=== PATIENT | female | born 1995 | race Hispanic/Latino ===

== ENCOUNTER 2018-09-16 08:31 | Emergency (ER) | payer BC ==
--- OUTSIDE RECORDS SUMMARY | 2018-09-16 08:33 | XMS REPORT ---
:1995 [facility] Address [address] [place] [address] [address]. [address] [place] [address] Care Team Providers Name Role Phone Unavailable Unavailable Unavailable Problems This patient has no known problems. Allergies, Adverse Reactions, Alerts This patient has no known allergies or adverse reactions. Medications This patient has no known medications.
[2018-09-16 09:16] LABS: Urine Blood 2+ (NEG); Urine Glucose NEGATIVE (NEG); Urine Protein NEGATIVE (NEG); Urine Specific Gravity 1.015 (1.005-1.030)
[2018-09-16 09:39] LABS: Absolute Lymphocytes (CBC) 1.8 K/uL (0.7-4.9); Absolute Monocytes 0.3 K/uL (0.1-1.3); Absolute Neutrophil 2.3 K/uL (1.8-8.0); Basophils % 0.4 % (0-1.3); Eosinophils % 2.4 % (0-4.4); Hematocrit 41.4 % (36.0-45.0); Lymphocytes % 38.8 % (15.3-44.8); MCH 32.9 pg (27.0-35.0); MCV 95.6 fL (80-100); MPV 8.3 fL (7.6-11.3); Monocytes % 7.5 % (3.3-12.3); RBC Red Blood Cell Count 4.33 M/uL (3.86-4.86)
[2018-09-16 10:13] LABS: BUN Blood Urea Nitrogen 8 mg/dL (7-18); Bicarbonate 26 mmol/L (21-32); Glucose Level 88 mg/dL (74-106); HCG, Quantitative 6617 mIU/mL (1-3); Potassium 3.6 mmol/L (3.5-5.1); Sodium Level 137 mmol/L (136-145)
--- NOTE | 2018-09-16 11:15 | RAD REPORT ---
EXAM DESCRIPTION: US - Transvaginal OB - 09/16/2018 10:55 am CLINICAL HISTORY: Abd cramping, ;Vaginal bleeding COMPARISON: No comparisons FINDINGS: A single gestational sac is seen within the uterus. The shape of the sac is within normal limits for gestational age. Within the sac is a single pole with crown-rump length of 6 mm, cor relating to estimated gestational age of 6 weeks 3 days. Estimated date of delivery is 05/09/2019. Heart rate is 115 BPM. The placenta is not yet developed due to early gestational age. The maternal adnexa and ovaries are within normal limits. Normal Doppler blood flow was demonstrated to both ovaries. IMPRESSION: Single live early intrauterine gestation with estimated gestational age of 6 weeks 3 day s, SHAILESH 05/09/2019. No unusual or unexpected finding.
--- NOTE | 2018-09-16 11:16 | EDPHYS ---
Physician Documentation [facility] Name: Lorraine Boyce Age: 22 yrs Sex: Female : 1995 Arrival Date: 09/16/2018 Time: 08:35 Bed 18 Private MD: None, None ED Physician Manuel Cabrera HPI: 09/16 08:57 This 22 yrs old Female presents to ER via Ambulatory with complaints of jr8 Vaginal Bleeding, + Preg <12wks. 08:57 The patient presents to the emergency department with vaginal bleeding, that is jr8 moderate, with clots. course: care: none, Leakage of Fluid: none appreciated, Ultrasound: the patient has not had an ultrasound. Previous pregnancies: in previous pregnancies patient has had vaginal delivery, no complications. Associated signs and symptoms: Pertinent positives: abdominal cramping. The patient has not experienced similar symptoms in the past. The patient has not recently seen a physician. 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 - Social history:: Smoking status: Patient/guardian denies using tobacco. - Ebola Screening: : Patient negative for fever greater than or equal to 101.5 degrees Fahrenheit, and additional compatible Ebola Virus Disease symptoms Patient denies exposure to infectious person Patient denies travel to an Ebola-affected area in the 21 days before illness onset No symptoms or risks identified at this time. ROS: 08:57 Eyes: Negative for injury, pain, redness, and discharge, ENT: Negative for injury, jr8 pain, and discharge, Neck: Negative for injury, pain, and swelling, Cardiovascular: Negative for chest pain, palpitations, and edema, Respiratory: Negative for shortness of breath, cough, wheezing, and pleuritic chest pain, Abdomen/GI: Negative for abdominal pain, nausea, vomiting, diarrhea, and constipation, Back: Negative for injury and pain, MS/Extremity: Negative for injury and deformity, Skin: Negative for injury, rash, and discoloration, Neuro: Negative for headache, weakness, numbness, tingling, and seizure. 08:57 : Positive for pelvic pain, vaginal bleeding. Exam: 08:57 Eyes: Pupils equal round and reactive to light, extra-ocular motions intact. Lids and jr8 lashes normal. Conjunctiva and sclera are non-icteric and not injected. Cornea within normal limits. Periorbital areas with no swelling, redness, or edema. ENT: Nares patent. No nasal discharge, no septal abnormalities noted. Tympanic membranes are normal and external auditory canals are clear. Oropharynx with no redness, swelling, or masses, exudates, or evidence of obstruction, uvula midline. Mucous membranes moist. Neck: Trachea midline, no thyromegaly or masses palpated, and no cervical lymphadenopathy. Supple, full range of motion without nuchal rigidity, or vertebral point tenderness. No Meningismus. Cardiovascular: Regular rate and rhythm with a normal S1 and S2. No gallops, murmurs, or rubs. Normal PMI, no JVD. No pulse deficits. Respiratory: Lungs have equal breath sounds bilaterally, clear to auscultation and percussion. No rales, rhonchi or wheezes noted. No increased work of breathing, no retractions or nasal flaring. Abdomen/GI: Soft, non-tender, with normal bowel sounds. No distension or tympany. No guarding or rebound. No evidence of tenderness throughout. Back: No spinal tenderness. No costovertebral tenderness. Full range of motion. Skin: Warm, dry with normal turgor. Normal color with no rashes, no lesions, and no evidence of cellulitis. MS/ Extremity: Pulses equal, no cyanosis. Neurovascular intact. Full, normal range of motion. Neuro: Awake and alert, GCS 15, oriented to person, place, time, and situation. Cranial nerves II-XII grossly intact. Motor strength 5/5 in all extremities. Sensory grossly intact. Cerebellar exam normal. Normal gait. Vital Signs: 08:52 BP 126 / 78; Pulse 65; Resp 16 S; Temp 98.2; Pulse Ox 98% on R/A; Weight 57.15 kg; iw Height 5 ft. 1 in. (154.94 cm); 11:26 BP 124 / 76; Pulse 79; Resp 16; Pulse Ox 100% on R/A; Pain 0/10; iw 08:52 Body Mass Index 23.81 (57.15 kg, 154.94 cm) iw MDM: 08:47 Patient medically screened. [facility] 11:15 Data reviewed: vital signs, nurses notes, lab test result(s), radiologic studies, 8 ultrasound, and as a result, I will discharge patient. Data interpreted: Pulse oximetry: on room air is 98 %. Interpretation: normal. Counseling: I had a detailed discussion with the patient and/or guardian regarding: the historical points, exam findings, and any diagnostic results supporting the discharge/admit diagnosis, lab results, radiology results, the need for outpatient follow up, an OB/Gyne specialist, to return to the emergency department if symptoms worsen or persist or if there are any questions or concerns that arise at home. 09/16 08:57 Order name: Quantitative Hcg; Complete Time: 10:37 [facility] 09/16 08:57 Order name: Abo/rh Typing; Complete Time: 10:37 [facility] 09/16 08:57 Order name: Basic Metabolic Panel; Complete Time: 10:37 [facility] 09/16 08:57 Order name: CBC with Diff; Complete Time: 10:37 [facility] 09/16 09:13 Order name: Urine Dipstick--Ancillary (enter results); Complete Time: 10:37 09/16 09:13 Order name: Urine --Ancillary (enter results); Complete Time: 10:37 09/16 08:57 Order name: Urine Test (obtain specimen); Complete Time: 09:16 [facility] 09/16 08:57 Order name: IV Saline Lock; Complete Time: 09:25 [facility] 09/16 08:57 Order name: Labs collected and sent; Complete Time: 09:25 [facility] 09/16 08:57 Order name: NPO; Complete Time: 09:03 [facility] 09/16 08:57 Order name: Urine Dipstick-Ancillary (obtain specimen); Complete Time: 09:16 [facility] 09/16 10:37 Order name: US Transvaginal Ob; Complete Time: 11:20 09/16 10:41 Order name: ABO/RH no charge; Complete Time: 10:41 EDMS Administered Medications: No medications were administered Disposition: 12:59 Co-signature as Attending Physician, Manuel Cabrera MD I agree with the assessment and kdr plan of care. Disposition: 09/16/18 11:15 Discharged to Home. Impression: Threatened . - Condition is Stable. - Discharge Instructions: Threatened Miscarriage, Vaginal Bleeding During , First Trimester, Pelvic Rest. - Medication Reconciliation Form, Thank You Letter, Antibiotic Education, Prescription Opioid Use form. - Follow up: Private Physician; When: 5 - 6 days; Reason: Recheck today's complaints, Continuance of care, Re-evaluation by your physician. - Problem is new. - Symptoms have improved. Signatures: Dispatcher [employer] EDKS Manuel Cabrera MD MD kdr Laurie Barcenas RN RN iw Stone Carlson PA PA jr8 Corrections: (The following items were deleted from the chart) 11:27 11:15 09/16/2018 11:15 Discharged to Home. Impression: Threatened . Condition iw is Stable. Forms are Medication Reconciliation Form, Thank You Letter, Antibiotic Education, Prescription Opioid Use. Follow up: Private Physician; When: 5 - 6 days; Reason: Recheck today's complaints, Continuance of care, Re-evaluation by your physician. Problem is new. Symptoms have improved. jr8
--- NOTE | 2018-09-16 11:16 | ER ---
Nurse's Notes [facility] Name: Lorraine Boyce Age: 22 yrs Sex: Female : 1995 Arrival Date: 09/16/2018 Time: 08:35 Bed 18 Private MD: None, None Diagnosis: Threatened Presentation: 09/16 08:50 Presenting complaint: Patient states: positive home UPT 2 weeks ago, vaginal bleeding iw started Thursday, cramping started yesterday, bleeding has gotten vb developer. Transition of care: patient was not received from another setting of care. Onset of symptoms was September 13, 2018. Risk Assessment: Do you want to hurt yourself or someone else? Patient reports no desire to harm self or others. Initial Sepsis Screen: Does the patient meet any 2 criteria? No. Patient's initial sepsis screen is negative. Does the patient have a suspected source of infection? No. Patient's initial sepsis screen is negative. Care prior to arrival: None. 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 - Social history:: Smoking status: Patient/guardian denies using tobacco. - Ebola Screening: : Patient negative for fever greater than or equal to 101.5 degrees Fahrenheit, and additional compatible Ebola Virus Disease symptoms Patient denies exposure to infectious person Patient denies travel to an Ebola-affected area in the 21 days before illness onset No symptoms or risks identified at this time. Screenin:00 Abuse screen: Denies threats or abuse. Nutritional screening: No deficits noted. aa5 Tuberculosis screening: No symptoms or risk factors identified. Fall Risk None identified. Assessment: 09:00 Obstetrical Assessment: General assessment: awake and alert, respirations even and aa5 unlabored, Patient reports Positive test . General: Appears comfortable, Behavior is calm, cooperative. Pain: Denies pain. Neuro: Level of Consciousness is awake, alert, obeys commands, Oriented to person, place, time, situation. Cardiovascular: Heart tones S1 S2 present Rhythm is regular. Respiratory: Airway is patent Respiratory effort is even, unlabored, Respiratory pattern is regular, symmetrical, Breath sounds are clear bilaterally. GI: Abdomen is flat, non-distended, Bowel sounds present X 4 quads. Abd is soft and non tender X 4 quads. : Reports vaginal bleeding that is moderate flow, dark red with very small clots that began Thursday. EENT: No signs and/or symptoms were reported regarding the EENT system. Derm: Skin is pink, warm \T\ dry. Musculoskeletal: Range of motion: intact in all extremities. 09:30 Reassessment: Patient is alert, oriented x 3, equal unlabored respirations, skin aa5 warm/dry/pink. Patient denies pain at this time. 11:26 Reassessment: Patient appears in no apparent distress at this time. Patient and/or iw family updated on plan of care and expected duration. Pain level reassessed. Patient is alert, oriented x 3, equal unlabored respirations, skin warm/dry/pink. Vital Signs: 08:52 BP 126 / 78; Pulse 65; Resp 16 S; Temp 98.2; Pulse Ox 98% on R/A; Weight 57.15 kg; iw Height 5 ft. 1 in. (154.94 cm); 11:26 BP 124 / 76; Pulse 79; Resp 16; Pulse Ox 100% on R/A; Pain 0/10; iw 08:52 Body Mass Index 23.81 (57.15 kg, 154.94 cm) iw ED Course: 08:35 Patient arrived in ED. mr 08:35 None, None is Private Physician. mr 08:47 Stone Carlson PA is PHCP. jr8 08:47 Manuel Cabrera MD is Attending Physician. jr8 08:50 Elizabeth Santana, RN is Primary Nurse. aa5 08:51 Triage completed. iw 08:56 Arm band placed on. iw 09:10 Initial lab(s) drawn, by me, sent to lab. Inserted saline lock: 20 gauge in right aa5 antecubital area, using aseptic technique. Blood collected. 09:15 Patient has correct armband on for positive identification. Placed in gown. Bed in low mh5 position. Call light in reach. Side rails up X 1. Adult w/ patient. Warm blanket given. Pulse ox on. NIBP on. 09:15 Urine collected: clean catch specimen, clear. [facility] 09:16 Urine --Ancillary (enter results) Sent. [facility] 09:16 Urine Dipstick--Ancillary (enter results) Sent. [facility] 10:56 Transvaginal Ob In Process Unspecified. EDMS 11:26 No provider procedures requiring assistance completed. IV discontinued, intact, iw bleeding controlled, No redness/swelling at site. Pressure dressing applied. Administered Medications: No medications were administered Outcome: 11:15 Discharge ordered by . gisela 11:27 Discharged to home ambulatory. iw 11:27 Condition: good 11:27 Discharge instructions given to patient, family, Instructed on discharge instructions, follow up and referral plans. Demonstrated understanding of instructions, follow-up care. 11:27 Patient left the ED. iw Signatures: Dispatcher [employer] EDWA PapaLeslee Irene, RN RN Elizabeth Santana RN RN aa5 Stone Carlson PA PA 8 Adrianna Collado [facility] Corrections: (The following items were deleted from the chart) 08:56 08:52 2, 0, Living 1, LMP 07/19/2018 iw iw
== END 2018-09-16 11:27 | disposition home or self-care (01) ==
LOC: ER 08:31
DX: O20.0 Threatened abortion (principal); Z3A.08 8 weeks gestation of pregnancy
CPT/HCPCS: 36415; 76817; 80048; 81003; 81025; 84702; 85025; 86900; 86901; 99284

== ENCOUNTER 2018-09-17 12:35 | Emergency (ER) | payer BC ==
--- OUTSIDE RECORDS SUMMARY | 2018-09-17 12:37 | XMS REPORT ---
:1995 [facility] Address [address] [place] [address] Dr. [address] [place] [address] Care Team Providers Name Role Phone Unavailable Unavailable Unavailable Problems This patient has no known problems. Allergies, Adverse Reactions, Alerts This patient has no known allergies or adverse reactions. Medications This patient has no known medications.
--- NOTE | 2018-09-17 15:12 | ER ---
Nurse's Notes [facility] Name: Lorraine Boyce Age: 22 yrs Sex: Female : 1995 Arrival Date: 09/17/2018 Time: 12:39 Bed 19 Private MD: None, None Diagnosis: Spontaneous Presentation: 09/17 12:47 Presenting complaint: Patient states: was seen here yesterday for vaginal bleeding and sv today started having increased bleeding and "something came out of me last night" (pt has it in a ziplock bag). c/o abd cramping. reports using 1 pad an hour. Transition of care: patient was not received from another setting of care. Onset of symptoms was September 17, 2018. Care prior to arrival: None. 12:47 Method Of Arrival: Ambulatory sv 12:47 Acuity: MARVIN 3 sv 14:45 Risk Assessment: Do you want to hurt yourself or someone else?. Initial Sepsis Screen: hb Does the patient meet any 2 criteria? No. Patient's initial sepsis screen is negative. Does the patient have a suspected source of infection? No. Patient's initial sepsis screen is negative. Triage Assessment: 12:47 General: Appears in no apparent distress. comfortable, Behavior is calm, cooperative, sv appropriate for age. Pain: Complains of pain in abdomen Pain currently is 6 out of 10 on a pain scale. Quality of pain is described as crampy. Neuro: Level of Consciousness is awake, alert, obeys commands, Oriented to person, place, time, situation, Moves all extremities. Full function Gait is steady. Respiratory: Respiratory effort is even, unlabored, Respiratory pattern is regular, symmetrical. : Reports cramping, vaginal bleeding that is bright red, with clots, moderate flow. Historical: - Allergies: 12:48 NKA; sv - PSHx: 12:48 Knee surgery; ; sv - Immunization history:: Adult Immunizations up to date. - Social history:: Smoking status: Patient/guardian denies using tobacco. - Ebola Screening: : No symptoms or risks identified at this time. Screenin:47 Abuse screen: Denies threats or abuse. Denies injuries from another. Nutritional hb screening: No deficits noted. Tuberculosis screening: No symptoms or risk factors identified. Fall Risk None identified. Assessment: 14:45 General: Appears in no apparent distress. Behavior is calm, cooperative. Pain: Pain hb currently is 6 out of 10 on a pain scale. Neuro: Level of Consciousness is awake, alert, obeys commands, Oriented to person, place, time, situation. Cardiovascular: Capillary refill < 3 seconds Patient's skin is warm and dry. Respiratory: Airway is patent Trachea midline Respiratory effort is even, unlabored, Respiratory pattern is regular, symmetrical, Breath sounds are clear bilaterally. GI: No signs and/or symptoms were reported involving the gastrointestinal system. : Reports vaginal bleeding that is with clots, moderate flow. EENT: No signs and/or symptoms were reported regarding the EENT system. Derm: Skin is intact, is healthy with good turgor, Skin is pink, warm \\T\\ dry. Musculoskeletal: No signs and/or symptoms reported regarding the musculoskeletal system. 15:39 Reassessment: Discharge ordered, awaiting pharmacy delivery of methergine. hb Vital Signs: 12:48 BP 121 / 73; Pulse 66; Resp 16; Temp 96; Pulse Ox 100% ; Weight 57.61 kg; Height 5 ft. sv 1 in. (154.94 cm); Pain 6/10; 14:45 BP 126 / 76; Pulse 64; Resp 16; Pulse Ox 100% on R/A; hb 15:40 BP 125 / 72; Pulse 65; Resp 17; Pulse Ox 100% on R/A; ca1 12:48 Body Mass Index 24.00 (57.61 kg, 154.94 cm) sv ED Course: 12:39 Patient arrived in ED. sb2 12:40 None, None is Private Physician. sb2 12:48 Triage completed. sv 12:49 Arm band placed on. sv 14:13 Svitlana Najera FNP-C is PHCP. snw 14:13 Marcial Contreras MD is Attending Physician. snw 14:39 Mary Cui, YAHAIRA is Primary Nurse. hb 14:40 Patient has correct armband on for positive identification. Placed in gown. Bed in low hb position. Call light in reach. Side rails up X 1. 15:03 US Transvaginal Ob In Process Unspecified. EDMS 16:50 No provider procedures requiring assistance completed. Patient did not have IV access ca1 during this emergency room visit. Administered Medications: 15:25 Drug: TORadol 60 mg Route: IM; Site: left deltoid; ca1 16:17 Follow up: Response: No adverse reaction ca1 16:30 Drug: METHERgine 0.2 mg Route: PO; ca1 16:51 Follow up: Response: Medication administered at discharge. ca1 Outcome: 15:12 Discharge ordered by . snw 16:50 Discharged to home ambulatory. ca1 16:50 Condition: stable 16:50 Discharge instructions given to patient, family, Instructed on discharge instructions, follow up and referral plans. medication usage, Demonstrated understanding of instructions, follow-up care, medications, Prescriptions given X 3. 16:51 Patient left the ED. ca1 Signatures: Dispatcher [employer] Julienne Cazares, RN RN sv Svitlana Najera, POST HOLE DIGGER-C POST HOLE DIGGER-Csnw Mary Cui RN RN Fiona Johansen sb2 Shiloh Lockett RN RN ca1 Corrections: (The following items were deleted from the chart) 12:48 12:47 Presenting complaint: Patient states: was seen here yesterday for vaginal sv bleeding and today started having increased bleeding and "something came out of me last night" (pt has it in a ziplock bag). c/o abd cramping. sv
--- NOTE | 2018-09-17 15:12 | EDPHYS ---
Physician Documentation [facility] Name: Lorraine Boyce Age: 22 yrs Sex: Female : 1995 Arrival Date: 09/17/2018 Time: 12:39 Bed 19 Private MD: None, None ED Physician Marcial Contreras HPI: 09/17 15:20 This 22 yrs old Female presents to ER via Ambulatory with complaints of snw PROBABLE MISCARRIAGE. 15:20 The patient presents with vaginal bleeding that is moderate, heavy, with clots. Onset: snw The symptoms/episode began/occurred suddenly, yesterday, and became worse last night. Modifying factors: The symptoms are alleviated by nothing. Associated signs and symptoms: Pertinent positives: cramping, vaginal bleeding. Severity of symptoms: At their worst the symptoms were moderate, severe, in the emergency department the symptoms have improved, moderately. The patient has experienced a previous episode, yesterday. The patient has been recently seen by a physician: The patient has been recently seen at the [facility] Emergency Department, yesterday, for similar complaints the patient was told to return for a recheck. Historical: - Allergies: 12:48 NKA; sv - PSHx: 12:48 Knee surgery; ; sv - Immunization history:: Adult Immunizations up to date. - Social history:: Smoking status: Patient/guardian denies using tobacco. - Ebola Screening: : No symptoms or risks identified at this time. ROS: 15:16 Constitutional: Negative for fever, chills, and weight loss, Eyes: Negative for injury, snw pain, redness, and discharge, ENT: Negative for injury, pain, and discharge, Neck: Negative for injury, pain, and swelling, Cardiovascular: Negative for chest pain, palpitations, and edema, Respiratory: Negative for shortness of breath, cough, wheezing, and pleuritic chest pain, Abdomen/GI: Negative for abdominal pain, nausea, vomiting, diarrhea, and constipation, Back: Negative for injury and pain, MS/Extremity: Negative for injury and deformity, Skin: Negative for injury, rash, and discoloration, Neuro: Negative for headache, weakness, numbness, tingling, and seizure. 15:16 : Negative for injury and swelling, heavy vaginal bleeding post leaving here last pm. Pt states she felt something pass and bleeding has slowed. +lower abd cramping Exam: 15:16 Constitutional: This is a well developed, well nourished patient who is awake, alert, snw and in no acute distress. Head/Face: Normocephalic, atraumatic. Eyes: Pupils equal round and reactive to light, extra-ocular motions intact. Lids and lashes normal. Conjunctiva and sclera are non-icteric and not injected. Cornea within normal limits. Periorbital areas with no swelling, redness, or edema. ENT: Nares patent. No nasal discharge, no septal abnormalities noted. Tympanic membranes are normal and external auditory canals are clear. Oropharynx with no redness, swelling, or masses, exudates, or evidence of obstruction, uvula midline. Mucous membranes moist. Neck: Trachea midline, no thyromegaly or masses palpated, and no cervical lymphadenopathy. Supple, full range of motion without nuchal rigidity, or vertebral point tenderness. No Meningismus. Chest/axilla: Normal chest wall appearance and motion. Nontender with no deformity. No lesions are appreciated. Cardiovascular: Regular rate and rhythm with a normal S1 and S2. No gallops, murmurs, or rubs. Normal PMI, no JVD. No pulse deficits. Respiratory: Lungs have equal breath sounds bilaterally, clear to auscultation and percussion. No rales, rhonchi or wheezes noted. No increased work of breathing, no retractions or nasal flaring. Abdomen/GI: Soft, non-tender, with normal bowel sounds. No distension or tympany. No guarding or rebound. No evidence of tenderness throughout. Back: No spinal tenderness. No costovertebral tenderness. Full range of motion. Skin: Warm, dry with normal turgor. Normal color with no rashes, no lesions, and no evidence of cellulitis. MS/ Extremity: Pulses equal, no cyanosis. Neurovascular intact. Full, normal range of motion. Neuro: Awake and alert, GCS 15, oriented to person, place, time, and situation. Cranial nerves II-XII grossly intact. Motor strength 5/5 in all extremities. Sensory grossly intact. Cerebellar exam normal. Normal gait. Psych: Awake, alert, with orientation to person, place and time. Behavior, mood, and affect are within normal limits. Vital Signs: 12:48 BP 121 / 73; Pulse 66; Resp 16; Temp 96; Pulse Ox 100% ; Weight 57.61 kg; Height 5 ft. sv 1 in. (154.94 cm); Pain 6/10; 14:45 BP 126 / 76; Pulse 64; Resp 16; Pulse Ox 100% on R/A; hb 15:40 BP 125 / 72; Pulse 65; Resp 17; Pulse Ox 100% on R/A; ca1 12:48 Body Mass Index 24.00 (57.61 kg, 154.94 cm) sv MDM: 14:40 Patient medically screened. teofilo 15:19 Data reviewed: vital signs, nurses notes. Data interpreted: Pulse oximetry: on room air snw is 100 %. Interpretation: normal. Counseling: I had a detailed discussion with the patient and/or guardian regarding: the historical points, exam findings, and any diagnostic results supporting the discharge/admit diagnosis, radiology results, the need for outpatient follow up, to return to the emergency department if symptoms worsen or persist or if there are any questions or concerns that arise at home. Special discussion: Based on the patient's Hx, exam, and Dx evaluation, there is no indication for emergent surgery or inpatient Tx. It is understood by the patient/guardian that if the Sx's persist or worsen they need to return immediately for re-evaluation. Based on the history and exam findings, there is no indication for further emergent testing or inpatient evaluation. I discussed with the patient/guardian the need to see the OB Gyne specialist for further evaluation of the symptoms. I discussed with the patient/guardian the need to see the primary care provider for further evaluation of the symptoms. 09/17 14:51 Order name: Urine Dipstick--Ancillary (enter results) bd 09/17 14:51 Order name: Urine --Ancillary (enter results) bd 09/17 14:15 Order name: Transvaginal Ob; Complete Time: 15:22 snw Administered Medications: 15:25 Drug: TORadol 60 mg Route: IM; Site: left deltoid; ca1 16:17 Follow up: Response: No adverse reaction ca1 16:30 Drug: METHERgine 0.2 mg Route: PO; ca1 16:51 Follow up: Response: Medication administered at discharge. ca1 Disposition: 09/17/18 15:12 Discharged to Home. Impression: Spontaneous . - Condition is Stable. - Discharge Instructions: Miscarriage. - Prescriptions for Methergine 0.2 mg Oral tablet - take 1 tablet by ORAL route every 6 hours; 3 tablet. Vitamin 27- 0.8 mg Oral Tablet - take 1 tablet by ORAL route once daily; 60 tablet. Diclofenac Sodium 75 mg Oral Tablet, Delayed Release (E.C.) - take 1 tablet by ORAL route 2 times per day; 20 tablet. - Medication Reconciliation Form, Thank You Letter, Antibiotic Education, Prescription Opioid Use, Work release form form. - Follow up: Emergency Department; When: As needed; Reason: Worsening of condition. Follow up: Private Physician; When: 2 - 3 days; Reason: Recheck today's complaints, Continuance of care. Addendum: 09/20/2018 06:48 Co-signature as Attending Physician, Marcial Contreras MD I agree with the assessment and c montano plan of care. Signatures: Dispatcher [employer] Julienne Cazares, RN Marcial Chaudhary MD MD cha Therrien, Shelly, OIL PROCESS STILLMAN-C OIL PROCESS STILLMAN-Csnw Mary Cui, RN RN AcShiloh watkins RN RN ca1 Corrections: (The following items were deleted from the chart) 09/17 16:51 15:12 09/17/2018 15:12 Discharged to Home. Impression: Spontaneous . Condition ca1 is Stable. Forms are Medication Reconciliation Form, Thank You Letter, Antibiotic Education, Prescription Opioid Use. Follow up: Emergency Department; When: As needed; Reason: Worsening of condition. Follow up: Private Physician; When: 2 - 3 days; Reason: Recheck today's complaints, Continuance of care. snw
--- NOTE | 2018-09-17 15:18 | RAD REPORT ---
EXAM DESCRIPTION: US - Transvaginal OB - 09/17/2018 3:01 pm CLINICAL HISTORY: with abdominal pain and vaginal bleeding COMPARISON: September 16, 2018 FINDINGS: The uterus 8 x 3 x 5 centimeters. The gestational sac seen within the endometrium on the prior exam is no longer visualized. Endometrial stripe within the lower uterine segment is heterogene ous and thickened. Neither ovary was seen. An adnexal mass is not noted. No significant free fluid is seen. IMPRESSION: Incomplete
[2018-09-17] MEDS ORDERED: KETOROLAC 30 MG/ML INJ ONE (15:37)
[2018-09-17 16:11] LABS: Urine Blood 1+ (NEG); Urine Glucose NEGATIVE (NEG); Urine Protein TRACE (NEG); Urine pH 8.5 (5.0-7.0)
[2018-09-17] MEDS ORDERED: METHYLERGONOVINE 0.2 MG TAB PO ONE (17:00)
== END 2018-09-17 16:51 | disposition home or self-care (01) ==
LOC: ER 12:35
DX: O03.9 Complete or unspecified spontaneous abortion without complication (principal)
CPT/HCPCS: 76817; 81003; 81025; 96372; 99283